=== PATIENT | male | born 1945 | race Caucasian/White ===

== ENCOUNTER 2017-11-23 14:49 | Emergency (ER) | payer MEDICARE, BC ==
[~2017-11-23] VITALS: Ht 177.8 cm; Wt 93.0 kg
[2017-11-23] MEDS ORDERED: Percocet 5-3251 EACH PO (16:33)
== END 2017-11-23 17:00 | disposition home or self-care (01) ==
LOC: ER 14:49
DX: S20.212A Contusion of left front wall of thorax, initial encounter (principal); I10 Essential (primary) hypertension; K21.9 Gastro-esophageal reflux disease without esophagitis; W01.0XXA Fall on same level from slipping, tripping and stumbling without subsequent striking against object, initial encounter; Z90.49 Acquired absence of other specified parts of digestive tract
CPT/HCPCS: 71046; 99283